=== PATIENT | female | born 1990 | race Caucasian/White ===

== ENCOUNTER 2018-11-11 10:59 | Emergency (ER) | payer OTHER ==
[~2018-11-11] VITALS: Ht 160 cm; Wt 63.5 kg
[~2018-11-11 10:59] MED LIST: AMOXICILLIN 50500 MG PO; CIPROFLOXACIN500 M1 PO; CLONAZEPAM 0.50.5 M1 PO; DEPAKOTE ER500 MG PO; IBUPROFEN 600600 M1 PO; IBUPROFEN 800800 M1 PO; LEXAPRO; NORCO 5-325 TA1 EACH PO; NORFLEX100 MG PO; PENICILLIN VK500 M1 PO; PHENERGAN 25 MG25 M1 PO; PHENERGAN25 M2 RC; PRENATAL PO; PRILOSEC40 MG PO; ZYRTEC10 M2 PO; [UNRECOGNIZED DRUG - OTHER]; [UNRECOGNIZED DRUG - REMARK]
[2018-11-11] MEDS ORDERED: CELEXA20 MG PO (11:29)
[2018-11-11 11:45] LABS: HEMATOCRIT 34.4 % (37.0-47.0); HEMOGLOBIN 11.4 gm/dL (12.0-15.0); MCV 78.8 fL (80.0-100.0); RBC 4.37 mil/uL (4.20-5.00); RDW 18.6 % (10.5-14.5); WBC 9.6 thou/uL (4.0-11.0)
[2018-11-11 12:05] LABS: CALCIUM 9.5 mg/dL (8.5-10.1); CREATININE 0.8 mg/dL (0.6-1.0)
[2018-11-11] MEDS ORDERED: MOBIC15 MG PO (12:46)
[2018-11-11] MEDS ORDERED: CLEOCIN HCL150 MG PO (12:46)
[2018-11-11 13:05] VITALS: BP 113/87
== END 2018-11-11 13:05 | disposition home or self-care (01) ==
LOC: ER 10:59
PROVIDERS: Emergency Medicine
DX: K04.7 Periapical abscess without sinus (principal); F17.210 Nicotine dependence, cigarettes, uncomplicated; F31.9 Bipolar disorder, unspecified; Z88.8 Allergy status to other drugs, medicaments and biological substances; Z98.890 Other specified postprocedural states; Z90.89 Acquired absence of other organs